=== PATIENT | female | born 1985 | race Caucasian/White ===

== ENCOUNTER 2020-05-31 06:57 | Emergency (ER) | payer OTHER ==
[2020-05-31 07:06] VITALS: RESP 18
[2020-05-31] MEDS ORDERED: HYDROmorphone 1 MG/ML 1 ML SYRINGE IVP STA ×2 (07:21→09:09)
[2020-05-31] MEDS ORDERED: METOCLOPRAMIDE 5 MG/ML 2 ML VIAL IVP STA (07:21)
[2020-05-31] MEDS ORDERED: PANTOPRAZOLE 40 MG/10 ML VIAL IVP STA (07:21)
--- NOTE | 2020-05-31 07:28 | ED ---
General Adult HPI - General Chief complaint: Urogenital Stated complaint: Left side pain Time Seen by Provider: 05/31/20 07:08 Source: patient, family, RN notes reviewed Mode of arrival: ambulatory - History of Present Illness Initial comments: Patient is a pleasant 35-year-old female presenting to the emergency Department with left flank pain. Onset of symptoms was 4:30 this morning. Onset was sudden and severe. Discomfort remained severe. Patient has nausea without vomi ting. No fevers. Patient had 2 episodes of dysuria yesterday. No constipation or diarrhea. Patient did have similar symptoms once years ago associated with kidney stone. Discomfort is more left posterior flank. Patient has had some dry heaves. - Related Data Home Medications Medication Instructions Recorded Confirmed FLUoxetine HCL [Sarafem] 60 mg PO HS 05/31/20 05/31/20 Norethindrone AC-Eth Estradiol 1 tab PO HS 05/31/20 05/31/20 [Loestrin 21 1-20 Tablet] Topiramate 50 mg PO BID 05/31/20 05/31/20 Previous Rx's Medication Instructions Recorded Ketorolac [Toradol] 10 mg PO Q6HR PRN #15 tab 05/31/20 Metoclopramide HCl [Reglan] 10 mg PO Q6HR PRN #15 tablet 05/31/20 Tamsulosin [Flomax] 0.4 mg PO DAILY #14 cap 05/31/20 Allergies Allergy/AdvReac Type Severity Reaction Status Date / Time Penicillins Allergy Rash/Hives Verified 05/31/20 08:54 Review of Systems ROS Statement: Those systems with pertinent positive or pertinent negative responses have been documented in the HPI. ROS Other: All systems not noted in ROS Statement are negative. Constitutional: Denies: fever Eyes: Denies: eye pain ENT: Denies: ear pain Respiratory: Denies: cough Cardiovascular: Denies: chest pain Endocrine: Denies: fatigue Gastrointestinal: Reports: as per HPI, nausea Genitourinary: Reports: as per HPI. Denies: frequency, hematuria Musculoskeletal: Reports: as per HPI Skin: Denies: rash Neurological: Denies: weakness Past Medical History Past Medical History: Asthma History of Any Multi-Drug Resistant Organisms: None Reported Past Surgical History: Section, Tubal Ligation Additional Past Surgical History / Comment(s): fatty tumor removed from back. Past Psychological History: No Psychological Hx Reported Smoking Status: Never smoker Past Alcohol Use History: None Reported Past Drug Use History: None Reported General Exam Limitations: no limitations General appearance: alert, in no apparent distress Head exam: Present: normocephalic Eye exam: Present: normal appearance Neck exam: Present: normal inspection Respiratory exam: Present: normal lung sounds bilaterally Cardiovascular Exam: Present: regular rate, normal rhythm Expanded Peripheral pulses: 2+: Dorsalis Pedis (R), Dorsalis Pedis (L) GI/Abdominal exam: Present: soft. Absent: distended, tenderness, guarding, rebound, rigid, pulsatile mass Extremities exam: Present: normal inspection Back exam: Present: other (Patient does have mild tenderness below the left CVA) Neurological exam: Present: alert Psychiatric exam: Present: normal affect, normal mood Skin exam: Present: normal color Course Vital Signs 05/31/20 05/31/20 05/31/20 07:00 07:06 08:06 Temperature 97.6 F Pulse Rate 74 77 Respiratory 18 18 18 Rate Blood Pressure 126/83 112/69 O2 Sat by Pulse 100 98 Oximetry 05/31/20 09:00 Temperature Pulse Rate Respiratory 18 Rate Blood Pressure 107/62 O2 Sat by Pulse Oximetry Medical Decision Making - Medical Decision Making Patient reevaluated and resting comfortably in bed. Patient states she is feeling better and does not need any further medication. Patient and family updated on results and need for follow-up. - Lab Data Result diagrams: 05/31/20 07:33 05/31/20 07:33 Lab Results 05/31/20 05/31/20 05/31/20 Range/Units 07:33 07:33 07:33 WBC 10.4 (3.8-10.6) k/uL RBC 4.73 (3.80-5.40) m/uL Hgb 11.5 (11.4-16.0) gm/dL Hct 37.3 (34.0-46.0) % MCV 78.9 L (80.0-100.0) fL MCH 24.3 L (25.0-35.0) pg MCHC 30.8 L (31.0-37.0) g/dL RDW 15.9 H (11.5-15.5) % Plt Count 272 (150-450) k/uL Neutrophils % 81 % Lymphocytes % 14 % Monocytes % 3 % Eosinophils % 1 % Basophils % 0 % Neutrophils # 8.5 H (1.3-7.7) k/uL Lymphocytes # 1.5 (1.0-4.8) k/uL Monocytes # 0.3 (0-1.0) k/uL Eosinophils # 0.1 (0-0.7) k/uL Basophils # 0.1 (0-0.2) k/uL PT 10.1 (9.0-12.0) sec INR 1.0 (<1.2) APTT 23.1 (22.0-30.0) sec Sodium 139 (137-145) mmol/L Potassium 3.9 (3.5-5.1) mmol/L Chloride 111 H (98-107) mmol/L Carbon Dioxide 16 L (22-30) mmol/L Anion Gap 12 mmol/L BUN 9 (7-17) mg/dL Creatinine 0.81 (0.52-1.04) mg/dL Est GFR (CKD-EPI)AfAm >90 (>60 ml/min/1.73 sqM) Est GFR (CKD-EPI)NonAf >90 (>60 ml/min/1.73 sqM) Glucose 130 H (74-99) mg/dL Calcium 8.8 (8.4-10.2) mg/dL Total Bilirubin 0.4 (0.2-1.3) mg/dL AST 19 (14-36) U/L ALT 15 (4-34) U/L Alkaline Phosphatase 92 (38-126) U/L Total Protein 7.6 (6.3-8.2) g/dL Albumin 4.2 (3.5-5.0) g/dL Amylase 52 (30-110) U/L Lipase 178 (23-300) U/L Urine Color Urine Appearance (Clear) Urine pH (5.0-8.0) Ur Specific [place] (1.001-1.035) Urine Protein (Negative) Urine Glucose (UA) (Negative) Urine Ketones (Negative) Urine Blood (Negative) Urine Nitrite (Negative) Urine Bilirubin (Negative) Urine Urobilinogen (<2.0) mg/dL Ur Leukocyte Esterase (Negative) Urine RBC (0-5) /hpf Urine WBC (0-5) /hpf Ur Squamous Epith Cells (0-4) /hpf Amorphous Sediment (None) /hpf Urine Bacteria (None) /hpf Urine Mucus (None) /hpf 05/31/20 Range/Units 07:44 WBC (3.8-10.6) k/uL RBC (3.80-5.40) m/uL Hgb (11.4-16.0) gm/dL Hct (34.0-46.0) % MCV (80.0-100.0) fL MCH (25.0-35.0) pg MCHC (31.0-37.0) g/dL RDW (11.5-15.5) % Plt Count (150-450) k/uL Neutrophils % % Lymphocytes % % Monocytes % % Eosinophils % % Basophils % % Neutrophils # (1.3-7.7) k/uL Lymphocytes # (1.0-4.8) k/uL Monocytes # (0-1.0) k/uL Eosinophils # (0-0.7) k/uL Basophils # (0-0.2) k/uL PT (9.0-12.0) sec INR (<1.2) APTT (22.0-30.0) sec Sodium (137-145) mmol/L Potassium (3.5-5.1) mmol/L Chloride (98-107) mmol/L Carbon Dioxide (22-30) mmol/L Anion Gap mmol/L BUN (7-17) mg/dL Creatinine (0.52-1.04) mg/dL Est GFR (CKD-EPI)AfAm (>60 ml/min/1.73 sqM) Est GFR (CKD-EPI)NonAf (>60 ml/min/1.73 sqM) Glucose (74-99) mg/dL Calcium (8.4-10.2) mg/dL Total Bilirubin (0.2-1.3) mg/dL AST (14-36) U/L ALT (4-34) U/L Alkaline Phosphatase (38-126) U/L Total Protein (6.3-8.2) g/dL Albumin (3.5-5.0) g/dL Amylase (30-110) U/L Lipase (23-300) U/L Urine Color Yellow Urine Appearance Turbid H (Clear) Urine pH 8.5 H (5.0-8.0) Ur Specific [place] 1.019 (1.001-1.035) Urine Protein 1+ H (Negative) Urine Glucose (UA) Negative (Negative) Urine Ketones Negative (Negative) Urine Blood Large H (Negative) Urine Nitrite Negative (Negative) Urine Bilirubin Negative (Negative) Urine Urobilinogen <2.0 (<2.0) mg/dL Ur Leukocyte Esterase Negative (Negative) Urine RBC >182 H (0-5) /hpf Urine WBC 2 (0-5) /hpf Ur Squamous Epith Cells 3 (0-4) /hpf Amorphous Sediment Rare H (None) /hpf Urine Bacteria Occasional H (None) /hpf Urine Mucus Moderate H (None) /hpf - Radiology Data Radiology results: report reviewed (Computed tomography scan abdomen pelvis shows 3-4 mm stone left proximal ureter), image reviewed (KUB reveals no acute process) Disposition Clinical Impression: Ureterolithiasis Disposition: HOME SELF-CARE Condition: Stable Instructions (If sedation given, give patient instructions): Kidney Stones (ED) Additional Instructions: Please follow-up with primary care physician in the next couple days for recheck. Follow-up with urology, number provided. Return for fevers, uncontrolled pain or vomiting, worsening symptoms or other concerns. Prescriptions sent to [facility] on Prescriptions: Tamsulosin [Flomax] 0.4 mg PO DAILY #14 cap Metoclopramide HCl [Reglan] 10 mg PO Q6HR PRN #15 tablet PRN Reason: Nausea Ketorolac [Toradol] 10 mg PO Q6HR PRN #15 tab PRN Reason: Pain Is patient prescribed a controlled substance at d/c from ED?: No Referrals: Brianna Anthony MD [Primary Care Provider] - 1-2 days Isrrael Moreau MD [STAFF PHYSICIAN] - 1-2 days Time of Disposition: 10:29
[2020-05-31] MEDS ORDERED: SODIUM CHLORIDE 0.9% 1,000 ML IV ONE (07:37)
[2020-05-31 07:39] LABS: Basophils # (A) 0.1 k/uL (0-0.2); Basophils % (A) 0 %; Eosinophils # (A) 0.1 k/uL (0-0.7); Eosinophils % (A) 1 %; HCT 37.3 % (34.0-46.0); HGB 11.5 gm/dL (11.4-16.0); Lymphocytes # (A) 1.5 k/uL (1.0-4.8); Lymphocytes % (A) 14 %; MCH 24.3 pg (25.0-35.0); MCHC 30.8 g/dL (31.0-37.0); MCV 78.9 fL (80.0-100.0); Mean Platelet Volume 8.2; Monocytes # (A) 0.3 k/uL (0-1.0); Monocytes % (A) 3 %; Neutrophils # (A) 8.5 k/uL (1.3-7.7); Neutrophils % (A) 81 %; Platelet Count 272 k/uL (150-450); RBC 4.73 m/uL (3.80-5.40); RDW 15.9 % (11.5-15.5); WBC 10.4 k/uL (3.8-10.6)
[2020-05-31 07:50] LABS: ALT 15 U/L (4-34); AST 19 U/L (14-36); African American GFR (CKD) >90 (>60 ml/min/1.73 sqM); Albumin 4.2 g/dL (3.5-5.0); Alkaline Phosphatase 92 U/L (38-126); Amylase 52 U/L (30-110); Anion Gap 12 mmol/L; Blood Urea Nitrogen 9 mg/dL (7-17); Calcium 8.8 mg/dL (8.4-10.2); Carbon Dioxide 16 mmol/L (22-30); Chloride 111 mmol/L (98-107); Glucose 130 mg/dL (74-99); Non-African American GFR(CKD) >90 (>60 ml/min/1.73 sqM); Potassium 3.9 mmol/L (3.5-5.1); Sodium 139 mmol/L (137-145); Total Bilirubin 0.4 mg/dL (0.2-1.3); Total Protein 7.6 g/dL (6.3-8.2)
[2020-05-31 07:57] LABS: Partial Thromboplastin Time 23.1 sec (22.0-30.0); Prothrombin Time 10.1 sec (9.0-12.0)
--- NOTE | 2020-05-31 08:04 | XR ---
EXAMINATION TYPE: XR KUB DATE OF EXAM: 05/31/2020 7:55 AM CLINICAL HISTORY: Left-sided flank pain and nausea. TECHNIQUE: Two Upright KUB images of the abdomen are obtained. COMPARISON: None. FINDINGS: Some paucity of bowel gas. Visualized gas seen in nondistended stomach epigastric region. S ome scattered gas seen in nondistended small and large bowel loops. There is no visceromegaly, pneumo peritoneum, or abnormal calcification appreciated. The lung bases are clear and the osseous structure s are intact. IMPRESSION: Overall nonspecific but strongly favor nonobstructive bowel gas pattern.
[2020-05-31 08:08] LABS: Amorphous Sediment,Urine Rare /hpf; Appearance,Urine Turbid (Clear); Bacteria,Urine Occasional /hpf; Bilirubin,Urine Negative (Negative); Blood,Urine Large (Negative); Color,Urine Yellow; Glucose,Urine (UA) Negative (Negative); Ketones,Urine Negative (Negative); Leukocyte Esterase,Urine Negative (Negative); Mucus,Urine Moderate /hpf; Nitrite,Urine Negative (Negative); PH, Urine 8.5 (5.0-8.0); Protein,Urine 1+ (Negative); RBC,Urine >182 /hpf (0-5); Specific Gravity,Urine 1.019 (1.001-1.035); Squamous Epithelial Cell,Urine 3 /hpf (0-4); Urobilinogen,Urine <2.0 mg/dL (<2.0); WBC,Urine 2 /hpf (0-5)
[2020-05-31] MEDS ORDERED: ONDANSETRON 4 MG/2 ML VIAL IVP STA (09:09)
--- NOTE | 2020-05-31 10:13 | CT ---
EXAMINATION TYPE: CT abdomen pelvis wo con DATE OF EXAM: 05/31/2020 HISTORY: Low back pain and abdominal pain CT DLP: 895.3 mGycm. Automated Exposure Control for Dose Reduction was Utilized. TECHNIQUE: CT scan of the abdomen and pelvis is performed without oral or IV contrast. COMPARISON: Abdominal x-ray earlier today FINDINGS: Within the limitations of a non-contrast study, the following observations are made. LUNG BASES: No significant abnormality is appreciated. LIVER/GB: No significant abnormality is appreciated. PANCREAS: No significant abnormality is seen. SPLEEN: No significant abnormality is seen. ADRENALS: No significant abnormality is seen. KIDNEYS: There is 3 to 4 mm calculus in the proximal left ureter coronal image 61 causing asymmetric mild left-sided hydronephrosis. There is additional 1 to 2 mm calculus mid pole level left kidney cor onal image 66. No right-sided renal calculus or hydronephrosis no intraluminal calculus in the poorly distended bladder. BOWEL: Normal appearing appendix from base of cecum in the right pelvis. No suspicious small or large bowel dilatation. Mild wall thickening in the transverse and left colon. Product of poor distention. There is single diverticula left lower quadrant near junction of left and sigmoid colon. No CT evide nce for acute diverticulitis. GENITAL ORGANS: Retroverted uterus. LYMPH NODES: No greater than 1cm abdominal or pelvic lymph nodes are appreciated. OSSEOUS STRUCTURES: Mild facet arthropathy lower lumbar levels. OTHER: Small fat-containing umbilical hernia. IMPRESSION: There is 3 to 4 mm calculus proximal left ureter causing mild left-sided hydronephrosis.
[2020-05-31 10:39] VITALS: BP 101/64; PULSE 84; TEMP 97.7
== END 2020-05-31 10:40 | disposition home or self-care (01) ==
LOC: EC 06:57
DX: N20.1 Calculus of ureter (principal); Z98.51 Tubal ligation status; Z79.3 Long term (current) use of hormonal contraceptives; Z79.899 Other long term (current) drug therapy; Z88.0 Allergy status to penicillin
CPT/HCPCS: 36415; 80053; 82150; 83690; 85025; 85610; 85730; 81001; 74018; 74176; 99284; 96374; 96375 ×3; 96376; 96361; J2765; J2405; J1170; C9113